=== PATIENT | male | born 1945 | race Caucasian/White ===

== ENCOUNTER → 2016-06-27 | Outpatient (CLI) | payer MEDICARE ==
--- NOTE | 2016-07-02 10:36 | P.ARTDOP ---
Arterial Doppler LOWER EXTREMITY ARTERIAL DOPPLER: DATE OF SERVICE: 06/27/2016 Reason for study: Leg numbness. Doppler waveforms: Multiphasic throughout on the left. Multiphasic to the posterior tibial on the right and atypical at the dorsalis pedis.. Pulse volume recording: Mild distal blunting on the right.. Pressure gradients: None on the left. Above the thigh on the right.. Ankle-brachial indices: 0.87 on the right and greater than 1 on the left. 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 Normal on the left..
== END | disposition home or self-care (01) ==
LOC: RADUSWWP 06:39
PROVIDERS: ATTEND Family Medicine
DX: I73.9 Peripheral vascular disease, unspecified (principal)
CPT/HCPCS: 93923